=== PATIENT | male | born 1940 | race Caucasian/White ===

== ENCOUNTER 2017-08-31 05:05 | Inpatient (IN) | payer OTHER ==
[2017-08-02 13:10] VITALS: BMI 28.0
--- NOTE | 2017-08-02 13:59 | PAT Medication Instructions ---
Service Date Aug 02, 2017. Current Home Medication List Amlodipine/Benazepril (Lotrel 10MG/20MG), 1 CAP PO QAM Atorvastatin (Lipitor), 20 MG PO QPM Homeopathic Products (Leg Cramp Relief), 1 TAB PO UD PRN for LEG CRAMPS Hydrochlorothiazide (Hydrochlorothiazide), 1 TAB PO QAM Meloxicam (Mobic), 7.5 MG PO UD PRN for prn Metoprolol Tartrate (Lopressor), 50 MG PO BID Omeprazole (Prilosec), 20 MG PO UD PRN for PRN Medication Instructions For Your Scheduled Surgery -Contact your surgeon if you plan on taking: Meloxicam (Mobic), 7.5 MG PO UD PRN for prn - Hold the following medications the morning of surgery: Hydrochlorothiazide (Hydrochlorothiazide), 1 TAB PO QAM Amlodipine/Benazepril (Lotrel 10MG/20MG), 1 CAP PO QAM - Take the following medications the morning of surgery with a sip of water: Omeprazole (Prilosec), 20 MG PO UD PRN for PRN (if needed) Metoprolol Tartrate (Lopressor), 50 MG PO BID Homeopathic Products (Leg Cramp Relief), 1 TAB PO UD PRN for LEG CRAMPS (if needed) - Take the following medications as scheduled the night before surgery: Omeprazole (Prilosec), 20 MG PO UD PRN for PRN (if needed) Metoprolol Tartrate (Lopressor), 50 MG PO BID Atorvastatin (Lipitor), 20 MG PO QPM Homeopathic Products (Leg Cramp Relief), 1 TAB PO UD PRN for LEG CRAMPS (if needed) If you have any questions please call us at [phone] or [phone] or [phone]
[2017-08-02 14:50] LABS: BASO % 0.2 %; BASO ABS # 0.02 K/uL (0-0.2); EOS % 1.3 %; EOS ABS # 0.13 K/uL (0-0.5); HEMATOCRIT 46.6 % (42-52); HEMOGLOBIN 16.8 g/dL (14.0-18.0); IG# 0.02 K/uL (0.00-0.02); LYMPH % 29.5 %; LYMPH ABS # 2.91 K/uL (1.2-3.4); MEAN CELL VOLUME 86.5 fL (80-100); MEAN CORPUSCULAR HEMOGLOBIN 31.2 pg (25-34); MEAN CORPUSCULAR HGB CONC 36.1 g/dl (32-36); MEAN PLATELET VOLUME 11.1 fL (7.4-10.4); MONO % 7.3 %; MONO ABS # 0.72 K/uL (0.11-0.59); NEUT % 61.5 %; NEUT ABS # 6.08 K/uL (1.4-6.5); PLATELET COUNT 205 K/uL (130-400); RED CELL DISTRIBUTION WIDTH CV 12.7 % (11.5-14.5); RED CELL DISTRIBUTION WIDTH SD 40.3 fL (36.4-46.3); WHITE BLOOD COUNT 9.88 K/uL (4.8-10.8)
--- NOTE | 2017-08-02 14:56 | DIAGNOSTIC IMAGING REPORT ---
CHEST 2 VIEWS ROUTINE CLINICAL HISTORY: Preoperative evaluation. COMPARISON STUDY: No previous studies for comparison. FINDINGS: Lung volumes are normal. Incidental note is made of a surgical anchor within the left humeral head. There is no pneumothorax or pleural effusion. There is no consolidation. Pulmonary vascularity is normal. Cardiomediastinal silhouette is unremarkable. IMPRESSION: No acute cardiopulmonary findings. Electronically signed by: Kunal Alas M.D. 08/02/2017 2:55 PM Dictated Date/Time: 08/02/2017 2:54 PM
[2017-08-02 15:03] LABS: PTT PATIENT 26.6 SECONDS (21.0-31.0)
[2017-08-02 15:22] LABS: CALCIUM 9.1 mg/dl (8.5-10.1); CREATININE 1.14 mg/dl (0.60-1.40)
--- NOTE | 2017-08-30 18:31 | HISTORY & PHYSICAL EXAMINATION ---
DATE OF ADMISSION: 08/31/2017 ADMISSION HISTORY AND PHYSICAL CHIEF COMPLAINT: Chronic left knee pain. HISTORY OF PRESENT ILLNESS: This is a 77-year-old male patient of Dr. Hoyt'del complaining of chronic left knee pain, longstanding, now progressively getting worse. The patient has failed conservative treatment including intraarticular injections, arthroscopic surgery and over the counter anti-inflammatories. The patient has increased pain with weightbearing activities and his pain does interfere with his activities of daily living. PAST MEDICAL HISTORY: Hypertension, hypercholesterolemia, neck problems, sciatica, and acid reflux. SOCIAL HISTORY: Nonsmoker, nondrinker. PAST SURGICAL HISTORY: Left knee scope, right shoulder scope and left shoulder scope. FAMILY HISTORY: Noncontributory. REVIEW OF SYSTEMS: Chronic left knee pain. MEDICATIONS: Lipitor 20 mg daily, hydrochlorothiazide 12.5 mg daily, amlodipine 12/Benazepril 40 mg daily, and metoprolol 50 mg daily. ALLERGIES: No known drug allergies. PHYSICAL EXAMINATION: GENERAL: Well-developed, well-nourished 77-year-old male in no acute distress. He is alert and oriented x3 and pleasant. HEENT: Normocephalic, atraumatic. Extraocular motions are intact. Pupils are equal and reactive to light. HEART: Regular rate and rhythm. LUNGS: Clear. ABDOMEN: Soft and nontender, bowel sounds are present. EXTREMITIES: Left knee reveals medial joint line tenderness. He has a limited range of motion of 0-130. He has a varus deformity with crepitation with passive range of motion. He has 5/5 strength. NEUROLOGICAL: Neurologically and neurovascularly he is intact in his left lower extremity. DIAGNOSES: Left knee end-stage osteoarthritis, hypertension, hypercholesterolemia, neck problems, sciatica, and acid reflux. PLAN: The patient was advised of his diagnosis. Indications, risks, benefits, and postop course have all been reviewed. The patient wishes to proceed with a left total knee arthroplasty. Necessary consent forms, preoperative testing and clearances will be obtained.
[2017-08-31] VITALS (11 sets, daily range): BP systolic 148–198; BP diastolic 59–84; PULSE 46–58; TEMP 36.2–36.8; O2SAT 95–99; Ht 172.7 cm; Wt 84.1 kg
[~2017-08-31] VITALS: Ht 172.7 cm; Wt 84.1 kg
[~2017-08-31 05:05] MED LIST: AMLO10CA PO; ATOR-22 PO; HOME1TAB18 PO; HYDR12.55 PO; MELO7.5T5 PO; METO-551 PO; OMEP20CA59 PO
[2017-08-31] MEDS ORDERED: EYE OPL (05:58)
[2017-08-31] MEDS ORDERED: LACTATED RINGER'S 1000ML 500 ML IV SCH (06:00)
[2017-08-31] MEDS ORDERED: DEXAMETHASONE 4 MG TAB PO SCH (06:00)
[2017-08-31] MEDS ORDERED: CEFAZOLIN 2000MG IV PUSH 15 ML IV SCH (06:00)
[2017-08-31] MEDS ORDERED: ACETAMINOPHEN 500 MG TAB PO SCH (06:00)
[2017-08-31] MEDS ORDERED: GABAPENTIN 600 MG PO SCH (06:00)
[2017-08-31] MEDS ORDERED: CeleBREX 200 MG CAP PO SCH (06:00)
[2017-08-31] MEDS ORDERED: ROPIVACAINE 5MG/ML 30 ML 150 MG, BUPIVACAINE 0.5% MPF INJ 30 ML, EpINEphrine HCL INJ 0.... INFIL SCH ×8 (06:00)
[2017-08-31] MEDS ORDERED: LACTATED RINGER'S 1000ML 1,000 ML IV SCH (06:00)
[2017-08-31] MEDS ORDERED: METOCLOPRAMIDE HCL 10 MG TAB PO SCH (06:00)
[2017-08-31] MEDS ORDERED: FAMOTIDINE 20 MG TAB PO SCH (06:00)
[2017-08-31] MEDS ORDERED: MIDAZOLAM HCL 1 MG/ML 2ML VIAL ONE (06:21)
[2017-08-31] MEDS ORDERED: FENTANYL CITRATE INJ 50 MCG/1 ML 2 ML VIAL ONE (06:22)
[2017-08-31] MEDS ORDERED: BUPIVACAINE 0.25% 30 ML VIAL ONE (06:25)
[2017-08-31] MEDS ORDERED: BUPIVACAINE 0.5 % 5 MG/1 ML PF 10ML VIAL ONE (06:25)
[2017-08-31] MEDS ORDERED: PROPOFOL IV EMULSION 10 MG/ML 20 ML VIAL IV ONE (06:28)
[2017-08-31] MEDS ORDERED: LIDOCAINE HCL 2% 2 ML VIAL (20MG/ML) ONE (06:28)
[2017-08-31] MEDS ORDERED: ONDANSETRON INJ 2 MG/ML 2 ML VIAL ONE (06:28)
[2017-08-31] MEDS: TRANEXAMIC ACID INJ 1,000 MG x 2 Bags IV SCH ×4 (06:30→06:49)
[2017-08-31] MEDS ORDERED: POVIDONE-IODINE OP SOLN 30 ML BTL ONE (06:39)
[2017-08-31] MEDS ORDERED: ORTHO JOINT ANESTHETIC ONE (06:39)
[2017-08-31] MEDS ORDERED: BACITRACIN 50000 UNIT VIAL ONE (06:39)
[2017-08-31] MEDS ORDERED: EpHEDrine SULFATE INJ 50 MG/ML AMP IV PRN (07:00)
[2017-08-31] MEDS ORDERED: PHENYLEPHRINE 100MCG/ML 5ML SYR IV PRN (07:00)
[2017-08-31] MEDS ORDERED: ATROPINE SULFATE 0.1 MG/ML 5ML SYR IV PRN (07:00)
[2017-08-31] MEDS ORDERED: HYDROmorphone INJ 2 MG/ML SYR/VIAL IV PRN (07:00)
[2017-08-31] MEDS ORDERED: KETOROLAC TROMETHAMINE 30 MG/ML VIAL IV. PRN (07:00)
[2017-08-31] MEDS ORDERED: ONDANSETRON INJ 2 MG/ML 2 ML VIAL IV PRN ×2 (07:00→09:30)
--- NOTE | 2017-08-31 07:10 | History & Physical Bridge Note ---
H&P Re-Evaluation Bridge Note: I have examined the patient, reviewed the History & Physical and in the interval since the performance of the History & Physical I have noted the following changes of clinical significance: No changes noted
[2017-08-31] MEDS ORDERED: EpHEDrine SULFATE 50MG/5ML SYR ONE (08:12)
--- NOTE | 2017-08-31 09:21 | OPERATIVE REPORT ---
DATE OF OPERATION: 08/31/2017 INDICATION FOR PROCEDURE: The patient is a 77-year-old male with bilateral knee osteoarthritis, left knee worse than his right. He has varus knee, he has [id number] to medial compartment of his left knee. Extensive conservative management and now wants to proceed with knee replacement surgery at this time. PREOPERATIVE DIAGNOSIS: End-stage osteoarthritis, left knee. POSTOPERATIVE DIAGNOSIS: Same. PROCEDURE: Left total knee arthroplasty. SURGEON: Fabien Hoyt MD. BURRING WHEEL OPERATOR: MINDY Rivera. ANESTHESIA: Spinal, adductor nerve block and Orthomix. OPERATIVE PROCEDURE: The patient was taken to the operating room, anesthetized under anesthesia as dictated. He was placed supine on the operating table. Pneumatic tourniquet was placed about the left upper thigh. Knee exam demonstrated about a 5 degree flexion contracture and good flexion to 130 degrees. He had a tight medial compartment. He had some laxity of his LCL. His left lower extremity was prepped and draped with ChloraPrep in usual sterile fashion. His leg was elevated, exsanguinated with Esmarch bandage. Pneumatic tourniquet was raised to 325 mmHg. Anterior incision made across the left knee. Skin incised sharp, subcutaneous flaps were elevated. He had some prepatellar bursal scar tissue that was resected. Incision was made through medial retinaculum and extended up in the mid third of the quadriceps tendon and extended down to the medial tibial tubercle. Intra-articular findings demonstrated that he had [id number] to medial compartment grade 4 with some eburnated bone. I used the [employer] 2.0, total knee arthroplasty system using Vision[employer] MRI templating. The template for 8 femur, 6 tibia. To expose the knee, the infrapatellar fat pad was resected. Lateral synovial bands were released. The fat pad over the anterior femur for placement of the component over the anterior femur was resected. The releases were performed around the medial tibial plateau and posteromedial tibial plateau to balance the ligaments. The ACL and PCL were resected. The menisci were resected. The femoral surface was exposed. The custom femoral cutting block was pinned in position and the distal femoral cut was made. The knee was extended and a subperiosteal peel lateral release was performed around the patella. Patella width was measured and width was reproduced using a 38 mm dome patellar component. The drill holes were made and the excess lateral facet was beveled off to prevent any impingement. The femur was re-exposed. A size 8 5 in 1 cutting block was pinned in position. The anterior, posterior and chamfer cuts were made. Then the tibia was subluxed and the custom tibial cutting guide was placed in position and the proximal tibial cut was made. The drill pin was used to make some small drill holes in the sclerotic medial proximal tibial plateau to enhance cement fixation there. The 7 tibial trial was externally rotated in line with the tibial tubercle, pinned in position and a punch for the stem was used. We upsized to a 7 to get better coverage which was appropriate. The size 8 femoral trial was then inserted, centered and the notch cutting devices were used. We did an initial trial reduction with a 9 poly. It appeared that there was going to be a little bit ligamentous imbalance with some laxity of the LCL compared to the MCL so we went ahead and removed that trial component, placed a laminar wheel truing machine tender in place, pie crusted the MCL slightly and then placed an [address] which balanced supplements perfectly and knee was perfectly balanced in full range of motion and patella had a slight liftoff so we did do a formal lateral release leaving the synovium intact and this allowed the patella to track centrally. Trials were removed. The anesthetic cocktail was injected per protocol. The knee was copiously irrigated with pulsatile lavage antibiotic solution and bacitracin. Final components were cemented with Simplex G cement. The final components were the 8 Oxinium posterior stabilized [employer] Journey, left Oxinium femoral component, the 7 tibial base plate, the 11 mm high flexed posterior stabilized poly insert and the 38 patella. While the cement cured, we used Betadine soak per protocol. Then irrigated out copiously with antibiotic solution and bacitracin. Then 2 drains were brought out laterally, connected to Hemovac. Quadriceps tendon and medial retinaculum were closed with interrupted [id number] #1 Vicryl sutures. Subcutaneous tissue closed with interrupted 2-0 Vicryl sutures, skin was closed with glen. Silverlon dressing was placed and the patient tolerated the procedure well. MINDY Rivera was my assistant paralegal. He functioned as assistant paralegal throughout the entire procedure. He assisted in patient positioning, prepping, draping, leg positioning, instrument management, soft tissue retraction and performed the fascial and subcutaneous and skin closure and will participate in postoperative care of the patient. I attest to the content of the Intraoperative Record and any orders documented therein. Any exception s are noted below.
[2017-08-31] MEDS ORDERED: OXYCODONE HCL IR 5 MG TAB (IMMEDIATE RELEASE) PO PRN (09:30)
[2017-08-31] MEDS ORDERED: BISACODYL 10 MG SUPP PR PRN (09:30)
[2017-08-31] MEDS ORDERED: MAGNESIUM HYDROXIDE SUSP 30 ML UDC PO PRN (09:30)
[2017-08-31] MEDS ORDERED: TRAMADOL HCL 50 MG TAB PO PRN (09:30)
[2017-08-31] MEDS ORDERED: [UNRECOGNIZED DRUG - OTHER] PO PRN (09:30)
[2017-08-31] MEDS ORDERED: SOD PHOSPHATE/SOD BIPHOSPHATE ENEMA 132 ML BTL PR PRN (09:30)
[2017-08-31] MEDS ORDERED: METOCLOPRAMIDE HCL INJ 5 MG/ML 2 ML VIAL IV PRN (09:30)
[2017-08-31] MEDS ORDERED: MoRPHine SULFATE 2 MG/ML CARP IV PRN (09:30)
[2017-08-31] MEDS ORDERED: ZOLPIDEM TARTRATE 5 MG TAB PO PRN (09:30)
--- NOTE | 2017-08-31 09:52 | DIAGNOSTIC IMAGING REPORT ---
L KNEE 1 OR 2 VIEWS ROUTINE CLINICAL HISTORY: Left knee degenerative joint disease. Arthroplasty. COMPARISON: None FINDINGS: Alignment of the total left knee arthroplasty is anatomic. There is no fracture or unexpected radiopaque foreign body. Skin glen and drains are in place. There is extensive vascular calcification. IMPRESSION: Expected findings following total left knee arthroplasty. Electronically signed by: Kunal Alas M.D. 08/31/2017 9:50 AM Dictated Date/Time: 08/31/2017 9:50 AM
[2017-08-31] MEDS ORDERED: AMLO5CAP3 PO (11:08)
[2017-08-31] MEDS ORDERED: MoRPHine SULFATE 4 MG/ML 1 ML CARP\\VIAL IV PRN (11:15)
[2017-08-31] MEDS: D5W AND 1/2NSS + 20MEQ KCL 1,000 ML IV SCH ×2 (11:31→20:33)
--- NOTE | 2017-08-31 11:36 | Anesthesiology Progress Note ---
Anesthesia Post Op Note Date & Time Aug 31, 2017 at 11:36 Vital Signs Pain Intensity: 0.0 Vital Signs Past 12 Hours Date Time Temp Pulse Resp B/P (MAP) Pulse Ox O2 Delivery O2 Flow Rate FiO2 08/31/17 11:32 36.3 51 18 161/69 (99) 98 Nasal Cannula 2.0 08/31/17 11:01 36.3 48 18 148/59 (88) 98 Nasal Cannula 2.0 08/31/17 11:00 98 Nasal Cannula 2.0 08/31/17 10:30 99 Nasal Cannula 2.0 08/31/17 10:30 Nasal Cannula 2.0 08/31/17 10:30 36.5 53 14 161/70 (100) 99 Nasal Cannula 2.0 08/31/17 10:15 47 11 141/62 100 Nasal Cannula 2 08/31/17 10:00 37.1 48 16 150/62 100 Nasal Cannula 2 08/31/17 09:50 53 16 148/63 96 Nasal Cannula 2 08/31/17 09:40 49 16 140/66 99 Nasal Cannula 2 08/31/17 09:30 50 16 132/60 100 Oxymask 10 08/31/17 09:21 36.5 16 148/70 100 Oxymask 10 08/31/17 05:40 36.8 46 18 198/84 98 Room Air Notes Mental Status: alert / awake / arousable, participated in evaluation Pt Amnestic to Procedure: Yes Nausea / Vomiting: adequately controlled Pain: adequately controlled Airway Patency, RR, SpO2: stable & adequate BP & HR: stable & adequate Hydration State: stable & adequate Anesthetic Complications: no major complications apparent
--- NOTE | 2017-08-31 11:39 | Medical Consult ---
Consultation Date of Consultation: Aug 31, 2017. Attending Physician: Fabien Hoyt M.D. Reason for Consultation: Post Op Medical Management History of Present Illness 77 year old male who is s/p left TKA today by Dr. Hoyt. Post operatively the patient is doing well. He reports his pain is well controlled. He reports mild numbness to the BLLE from surgery. No chest pain or shortness of breath. He denies abdominal pain and nausea. No lightheadedness and dizziness. He has not voided since surgery. Past Medical/Surgical History Medical Problems: (1) Dyslipidemia Status: Chronic (2) HTN (hypertension) Status: Chronic Surgical Problems: (1) H/O repair of left rotator cuff Status: Chronic (2) H/O repair of right rotator cuff Status: Chronic (3) S/P left knee arthroscopy Status: Chronic (4) S/P repair of hydrocele Status: Chronic Family History FH: colon cancer SISTER Social History Smoking Status: Never Smoker Alcohol Use: none Allergies Coded Allergies: No Known Allergies (Unverified , 08/31/17) Home Medications Amlodipine Besylate/Benaz (Amlodipine Besylate-Benazepril) 1 Cap Cap 1 Cap PO DAILY 30 Days 10mg/40mg [eye gtt/glaucoma] 1 Drop OPL QPM Leg Cramp Relief (Homeopathic Products) 1 Tab Tab 1 Tab PO UD PRN Prilosec (Omeprazole) 20 Mg Capcr 20 Mg PO UD PRN Mobic (Meloxicam) 7.5 Mg Tab 7.5 Mg PO UD PRN Hydrochlorothiazide 12.5 Mg Tab 1 Tab PO QAM 90 Days Lopressor (Metoprolol Tartrate) 50 Mg Tab 50 Mg PO BID Lipitor (Atorvastatin Calcium) 20 Mg Tab 20 Mg PO QPM Current Inpatient Medications Current Inpatient Medications Medications (Trade) Dose Ordered Sig/Robinson Route Start Time Stop Time Status Last Admin Dose Admin Lactated Ringer's 1,000 ml @ 15 mls/hr Q24H IV 08/31/17 06:00 09/01/17 05:59 Cefazolin Sodium 15 ml @ 2.5 mls/min PREOP IV 08/31/17 06:00 08/31/17 18:00 08/31/17 07:19 2.5 MLS/MIN Acetaminophen (Tylenol Tab) 1,000 mg PREOP PO 08/31/17 06:00 08/31/17 18:00 08/31/17 06:04 1,000 MG Celecoxib (CeleBREX CAP) 200 mg PREOP PO 08/31/17 06:00 08/31/17 18:00 08/31/17 06:02 200 MG Dexamethasone (Decadron Tab) 8 mg PREOP PO 08/31/17 06:00 08/31/17 18:00 08/31/17 06:03 8 MG Famotidine (Pepcid Tab) 20 mg PREOP PO 08/31/17 06:00 08/31/17 18:00 08/31/17 06:03 20 MG Gabapentin (Neurontin Cap) 600 mg PREOP PO 08/31/17 06:00 08/31/17 18:00 08/31/17 06:03 600 MG Metoclopramide HCl (Reglan Tab) 10 mg PREOP PO 08/31/17 06:00 08/31/17 18:00 08/31/17 06:03 10 MG Ondansetron HCl (Zofran Inj) 4 mg ONE PRN IV 08/31/17 07:00 08/31/17 12:00 Atropine Sulfate (Atropine Sulfate 0.1mg/ml Inj) 0.5 mg Q1M PRN IV 08/31/17 07:00 08/31/17 12:00 Ephedrine Sulfate (EpHEDrine SULFATE INJ) 5 mg Q5M PRN IV 08/31/17 07:00 08/31/17 12:00 Ketorolac Tromethamine (Toradol Inj) 30 mg ONE PRN IV. 08/31/17 07:00 08/31/17 12:00 Hydromorphone HCl (Dilaudid Inj) 0.25 mg Q5M PRN IV 08/31/17 07:00 08/31/17 12:00 Phenylephrine HCl (Cyril-Synephrine 500MCG/5ML Syr) 100 mcg Q5M PRN IV 08/31/17 07:00 08/31/17 12:00 Atorvastatin Calcium (Lipitor Tab) 20 mg QPM PO 08/31/17 21:00 09/30/17 20:59 Metoprolol Tartrate (Lopressor Tab) 50 mg BID PO 08/31/17 21:00 09/30/17 20:59 Amlodipine Besylate (Norvasc Tab) 10 mg QAM PO 09/01/17 09:00 10/01/17 08:59 Miscellaneous Information (Order Awaiting Action) 1 ea QS N/A 08/31/17 16:00 09/30/17 15:59 Potassium Chloride/Dextrose/ Sod Cl 1,000 ml @ 100 mls/hr Q10H IV 08/31/17 11:00 09/01/17 10:59 Cefazolin Sodium 2000 mg/Syringe 15 ml @ 3.75 mls/ min Q8H IV 08/31/17 15:00 08/31/17 23:03 Celecoxib (CeleBREX CAP) 200 mg BID PO 08/31/17 21:00 09/30/17 20:59 Oxycodone HCl (Roxicodone Immediate Rel Tab) 1 TABLET FOR PAIN RATING... Q4H PRN PO 08/31/17 09:30 09/14/17 09:29 Morphine Sulfate (MoRPHine SULFATE INJ) 2 mg Q2H PRN IV 08/31/17 09:30 09/14/17 09:29 Acetaminophen (Tylenol Tab) 1,000 mg Q8 PO 08/31/17 14:00 09/30/17 13:59 Magnesium Hydroxide (Milk Of Magnesia Susp) 30 ml Q6H PRN PO 08/31/17 09:30 09/30/17 09:29 Bisacodyl (Dulcolax Supp) 10 mg DAILY PRN [place] 08/31/17 09:30 09/30/17 09:29 Sodium Biphosphate/ Sodium Phosphate (Fleet Enema) 132 ml DAILY PRN [place] 08/31/17 09:30 09/30/17 09:29 Docusate Sodium (coLACE CAP) 100 mg BID PO 08/31/17 21:00 09/30/17 20:59 Diphenhydramine HCl (Benadryl Cap) 25 mg Q8H PRN PO 08/31/17 09:30 09/30/17 09:29 Zolpidem Tartrate (Ambien Tab) 5 mg HSZ PRN PO 08/31/17 09:30 09/30/17 09:29 Multivitamins (Multivitamin Tab) 1 tab QAM PO 09/01/17 09:00 10/01/17 08:59 Ondansetron HCl (Zofran Inj) 4 mg Q6H PRN IV 08/31/17 09:30 09/30/17 09:29 Metoclopramide HCl (Reglan Inj) 10 mg Q6H PRN IV 08/31/17 09:30 09/30/17 09:29 Pantoprazole Sodium (Protonix Tab) 40 mg QAM PO 09/01/17 09:00 09/05/17 08:59 Tramadol HCl (Ultram Tab) 1 tablet for pain rating... Q4H PRN PO 08/31/17 09:30 09/30/17 09:29 Aspirin (Ecotrin Tab) 81 mg BID PO 08/31/17 21:00 09/30/17 20:59 Morphine Sulfate (MoRPHine SULFATE INJ) 4 mg Q2H PRN IV 08/31/17 11:15 09/14/17 11:14 Benazepril HCl (Lotensin Tab) 40 mg QAM PO 09/01/17 09:00 10/01/17 08:59 Review of Systems ROS per HPI, all other systems reviewed and negative Physical Exam Date Time Temp Pulse Resp B/P (MAP) Pulse Ox O2 Delivery O2 Flow Rate FiO2 08/31/17 11:01 36.3 48 18 148/59 (88) 98 Nasal Cannula 2.0 08/31/17 11:00 98 Nasal Cannula 2.0 08/31/17 10:15 47 11 141/62 100 Nasal Cannula 2 08/31/17 10:00 37.1 48 16 150/62 100 Nasal Cannula 2 08/31/17 09:50 53 16 148/63 96 Nasal Cannula 2 08/31/17 09:40 49 16 140/66 99 Nasal Cannula 2 08/31/17 09:30 50 16 132/60 100 Oxymask 10 08/31/17 09:21 36.5 16 148/70 100 Oxymask 10 08/31/17 05:40 36.8 46 18 198/84 98 Room Air General Appearance: WD/WN, no apparent distress Head: normocephalic, atraumatic Eyes: normal inspection, EOMI, sclerae normal ENT: hearing grossly normal, + pertinent finding (mucous membranes moist) Neck: supple, no JVD, trachea midline Respiratory/Chest: lungs clear, normal breath sounds, no respiratory distress Cardiovascular: regular rate, rhythm, no edema, normal peripheral pulses Abdomen/GI: normal bowel sounds, non tender, soft, no organomegaly Extremities/Musculoskelatal: + pertinent finding (s/p left knee surgery, surgical dressing intact, drain in place draining bloody drainage, CSM checks intact) Neurologic/Psych: no motor/sensory deficits, alert, normal mood/affect, oriented x 3 Skin: normal color, warm/dry Assessment & Plan S/P LEFT TKA - POD#0 - activity and wound care orders as per ortho - pain control with bowel regimen - PT/OT - monitor H/H for acute blood loss anemia and transfuse blood products PRN HTN - BP controlled - continue amlodipine/benazepril and metoprolol (patient reports he chronically runs a HR in the 40s-50s) - will hold HCTZ for now to prevent perioperative dehydration DYSLIPIDEMIA - continue statin DVT PROPHYLAXIS - ASA 81mg BID per ortho Thank you for this consultation. We will follow the patient with you during their hospital stay. You can reach a [facility] via pager @ . ATTENDING ADDENDUM : pt seen and examined , care co ordinated with Angella ARITA 77 yo M underwent elective left knee surgery recovering well post op denies of any chest pain or SOB knee pain well controlled with pain meds eager to know when he can be discharged home medically stable ' cont out pt meds Lab ordered in AM to assess H&H and renal function please refer to documentation of Angella Gutierrez for further discussion of other issues Bobbi Moore MD
[2017-08-31] MEDS: ACETAMINOPHEN 500 MG TAB PO SCH ×2 (13:39→21:38)
[2017-08-31] MEDS: CEFAZOLIN IV 2,000 MG in SYRINGE 0 ML IV SCH ×2 (14:18→22:30)
[2017-08-31] MEDS: ATORVASTATIN 20 MG TAB PO SCH (20:33)
[2017-08-31] MEDS: CeleBREX 200 MG CAP PO SCH (20:33)
[2017-08-31] MEDS: ASPIRIN 81 MG ECTAB PO SCH (20:33)
[2017-08-31] MEDS: DOCUSATE SODIUM 100 MG CAP PO SCH (20:33)
[2017-08-31] MEDS: METOPROLOL TARTRATE 50 MG TAB PO SCH (20:35)
[2017-09-01] VITALS (8 sets, daily range): BP systolic 141–179; BP diastolic 58–77; PULSE 49–59; TEMP 36.5–36.9; O2SAT 97–98
[2017-09-01] MEDS: ACETAMINOPHEN 500 MG TAB PO SCH ×3 (05:56→21:42)
[2017-09-01] MEDS: D5W AND 1/2NSS + 20MEQ KCL 1,000 ML IV SCH (05:56)
[2017-09-01 06:42] LABS: HEMATOCRIT 35.4 % (42-52); HEMOGLOBIN 12.7 g/dL (14.0-18.0); MEAN CELL VOLUME 86.3 fL (80-100); MEAN CORPUSCULAR HGB CONC 35.9 g/dl (32-36); MEAN PLATELET VOLUME 10.6 fL (7.4-10.4); PLATELET COUNT 175 K/uL (130-400); RED CELL DISTRIBUTION WIDTH CV 12.7 % (11.5-14.5); RED CELL DISTRIBUTION WIDTH SD 40.2 fL (36.4-46.3); WHITE BLOOD COUNT 24.71 K/uL (4.8-10.8)
[2017-09-01 07:17] LABS: CALCIUM 8.3 mg/dl (8.5-10.1); CREATININE 1.15 mg/dl (0.60-1.40); POTASSIUM 4.7 mmol/L (3.5-5.1)
--- NOTE | 2017-09-01 08:11 | Anesthesiology Progress Note ---
Anesthesia Post Op Note Date & Time Sep 01, 2017 at 08:10 Vital Signs Pain Intensity: 0.0 Vital Signs Past 12 Hours Date Time Temp Pulse Resp B/P (MAP) Pulse Ox O2 Delivery O2 Flow Rate FiO2 09/01/17 07:53 36.5 49 16 179/67 (104) 97 Room Air 09/01/17 03:45 36.9 53 18 161/64 (96) 98 Room Air 08/31/17 22:50 36.6 52 18 160/60 (93) 97 Room Air 08/31/17 22:40 Room Air 08/31/17 20:25 58 160/66 (97) Notes Mental Status: alert / awake / arousable, participated in evaluation Pt Amnestic to Procedure: Yes Nausea / Vomiting: adequately controlled Pain: adequately controlled Airway Patency, RR, SpO2: stable & adequate BP & HR: stable & adequate Hydration State: stable & adequate Neuraxial Anesthesia: was administered, sensory block resolved Anesthetic Complications: no major complications apparent
--- NOTE | 2017-09-01 08:23 | Orthopedic Progress Note ---
Orthopedic Progress Note Date of Service Sep 01, 2017. Subjective Post OP Day: 1 Reports: feeling well, pain controlled w PO medications, Denies: complaints, chest pain, SOB, nausea / vomiting, light headedness, calf pain Additional Notes: BP elevated Objective calves soft nontender, N/V intact, capillary refill less than 2 sec., A&O x3, toes mobile Dressings bleeding through. Date Time Temp Pulse Resp B/P (MAP) Pulse Ox O2 Delivery O2 Flow Rate FiO2 09/01/17 07:53 36.5 49 16 179/67 (104) 97 Room Air 09/01/17 03:45 36.9 53 18 161/64 (96) 98 Room Air 08/31/17 22:50 36.6 52 18 160/60 (93) 97 Room Air 08/31/17 22:40 Room Air 08/31/17 20:25 58 160/66 (97) 08/31/17 15:45 95 Room Air 08/31/17 15:25 36.4 53 16 156/68 (97) 95 Room Air 08/31/17 13:39 36.2 58 18 160/67 (98) 98 Nasal Cannula 2.0 08/31/17 12:33 36.3 50 18 164/67 (99) 98 Nasal Cannula 2.0 08/31/17 11:32 36.3 51 18 161/69 (99) 98 Nasal Cannula 2.0 08/31/17 11:01 36.3 48 18 148/59 (88) 98 Nasal Cannula 2.0 08/31/17 11:00 98 Nasal Cannula 2.0 08/31/17 10:30 99 Nasal Cannula 2.0 08/31/17 10:30 Nasal Cannula 2.0 08/31/17 10:30 36.5 53 14 161/70 (100) 99 Nasal Cannula 2.0 08/31/17 10:15 47 11 141/62 100 Nasal Cannula 2 08/31/17 10:00 37.1 48 16 150/62 100 Nasal Cannula 2 08/31/17 09:50 53 16 148/63 96 Nasal Cannula 2 08/31/17 09:40 49 16 140/66 99 Nasal Cannula 2 08/31/17 09:30 50 16 132/60 100 Oxymask 10 08/31/17 09:21 36.5 16 148/70 100 Oxymask 10 Laboratory Results 24 Hours: Test 09/01/17 06:04 Hematocrit 35.4 % Hemoglobin 12.7 g/dL Assessment & Plan Assessment: POD #1, Left TKA Plan: PT/ OT DVT prph- ASA D/C planning- Home w HH Change dressing, check drain, remove if needed. HTN- Appreciate medicine input. Inhouse Planning Pain Management: Celebrex, Ultram, Morphine, PO Tylenol, Oxy IR DVT Prophylaxis: TEDs, SCDs, ASA Discharge Planning Discharge Planning: home with home health Pain Management: PO Tylenol, Oxy IR DVT Prophylaxis: TEDs, ASA Therapy: Physical Therapy, Occupational Therapy
--- NOTE | 2017-09-01 08:24 | Discharge Instructions ---
Discharge Instructions Date of Service Sep 01, 2017. Admission Reason for Admission: Left Knee Degenerative Joint Disease Discharge Discharge Diagnosis / Problem: Left TKA Discharge Goals Goal(s): Improve function Activity Recommendations Activity Limitations: as noted below . Instructions / Follow-Up Instructions / Follow-Up ACTIVITY RECOMMENDATIONS: SELF CARE INSTRUCTIONS AFTER TOTAL KNEE REPLACEMENT A. You may need to continue a physical therapy program after discharge from the hospital. There are several options available to you. Your doctor will assist you in selecting the best one for you. 1. An out-patient facility 2 to 3 times a week for therapy or home therapy. 2. Continue working on all exercises taught to you in the hospital. Your goals should be to increase bending of your knee to 90 degrees and beyond and to fully straighten your knee. B. You may progress at your own pace from walking with a walker or crutches to a cane; then to no assistive devices. C. Make walking a part of your daily routine. Be up as much as comfortable with rest periods throughout the day. Rest with leg elevation is very important. Use the ice wrap frequently for the first 3-4 weeks. D. There are no restrictions on activities. 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 E. Wear the long elastic stockings (MATTHEW hose) 20 hours a day for 2 weeks after surgery. They can be removed several times a day for laundering and for a bath. F. You may shower, no tub baths until cleared by your doctor. SPECIAL CARE INSTRUCTIONS: VERY IMPORTANT TO READ AND REVIEW A. There are a few signs you need to watch for after you are home. Call [facility] if you notice any of the followin. Increased severe knee pain. Some pain is expected especially when you exercise. 2. Increased swelling in your leg or knee; pain or swelling of the calf muscle in either lower leg. 3. Any fluid drainage from the incision. 4. Shortness of breath or chest pain. B. Please call [facility] at if you have any concerns or questions about your operation or recovery. The doctor or his nurse will return your call promptly. C. You must take antibiotics before dental work, bladder, bowel or other surgery. Your doctor will provide you with a permanent care to carry describing this precaution. IMPORTANT: * REMEMBER TO TAKE ASPIRIN, 81 MG, TWICE DAILY FOR 4 WEEKS UNLESS OTHERWISE DIRECTED. THIS IS YOUR BLOOD THINNER. * HIGH RISK PATIENTS MAY BE PRESCRIBED A STRONGER BLOOD THINNER. THIS WILL BE PROVIDED AT DISCHARGE. * CALL IF INCREASED PAIN, REDNESS, DRAINAGE OR FEVER GREATER THAT 101. * WEAR MATTHEW HOSE 20 HOURS PER DAY FOR 2 WEEKS. * YOU MAY HAVE A LARGE BAND-AID LIKE DRESSING (SILVERON). THIS WILL REMAIN ON YOUR INCISION FOR 7 DAYS, THEN CAN BE REMOVED. IF INCISION IS LEAKING THROUGH DRESSING, CALL THE OFFICE . FOLLOW UP VISIT: If appointment is not already scheduled: Please call [facility] to make a follow-up appointment for 2 weeks after your surgery at . Current Hospital Diet Patient's current hospital diet: Regular Diet Discharge Diet Recommended Diet: Regular Diet Procedures Procedures Performed: Left total knee arthroplasty-cemented Pending Studies Studies pending at discharge: no Medical Emergencies . Who to Call and When: Medical Emergencies: If at any time you feel your situation is an emergency, please call [phone] immediately. . Non-Emergent Contact Non-Emergency issues call your: Primary Care Provider . "Provider Documentation" section prepared by Hasmukh Segundo. . VTE Core Measure Inpt VTE Proph given/why not?: Other Anticoagulation (asa), Luis Eduardo Shaikh, SCD's [place] Drug Monitoring Program Search Results: patient reviewed within database, no issues identified
[2017-09-01] MEDS: METOPROLOL TARTRATE 50 MG TAB PO SCH ×2 (08:35→21:08)
[2017-09-01] MEDS: CeleBREX 200 MG CAP PO SCH ×2 (08:37→21:08)
[2017-09-01] MEDS: MULTIVITAMIN TAB PO SCH (08:37)
[2017-09-01] MEDS: AMLODIPINE BESYLATE 5 MG TAB PO SCH (08:37)
[2017-09-01] MEDS: PANTOprazole SOD 40 MG TAB PO SCH (08:37)
[2017-09-01] MEDS: DOCUSATE SODIUM 100 MG CAP PO SCH ×2 (08:37→21:07)
[2017-09-01] MEDS: ASPIRIN 81 MG ECTAB PO SCH ×2 (08:37→21:07)
[2017-09-01] MEDS: BENAZEPRIL HCL 10 MG TAB PO SCH (08:38)
[2017-09-01] MEDS ORDERED: HYDROCHLOROTHIAZIDE 25 MG TAB PO SCH (09:00)
[2017-09-01] MEDS ORDERED: BENAZEPRIL HCL 10 MG TAB PO SCH (09:00)
[2017-09-01] MEDS ORDERED: INDAPAMIDE 1.25 MG TAB PO ONE (11:15)
--- NOTE | 2017-09-01 18:23 | Progress Note ---
Subjective Date of Service: Sep 01, 2017. Subjective Pt evaluation today including: conversation w/ patient, physical exam, lab review, review of studies, review of inpatient medication list Saw/examined the patient in room 308 patient is doing well, pain controlled no problems/issues to note eager to go home in AM Review of Systems Respiratory: No shortness of breath Cardiac: No chest pain Abdomen: No pain, No nausea, No vomiting, No diarrhea Musculoskeletal: No joint pain Medications Current Inpatient Medications Medications (Trade) Dose Ordered Sig/Robinson Route Start Time Stop Time Status Last Admin Dose Admin Atorvastatin Calcium (Lipitor Tab) 20 mg QPM PO 08/31/17 21:00 09/30/17 20:59 08/31/17 20:33 20 MG Metoprolol Tartrate (Lopressor Tab) 50 mg BID PO 08/31/17 21:00 09/30/17 20:59 08/31/17 20:35 50 MG Amlodipine Besylate (Norvasc Tab) 10 mg QAM PO 09/01/17 09:00 10/01/17 08:59 09/01/17 08:37 10 MG Miscellaneous Information (Order Awaiting Action) 1 ea QS N/A 08/31/17 16:00 09/30/17 15:59 Celecoxib (CeleBREX CAP) 200 mg BID PO 08/31/17 21:00 09/30/17 20:59 09/01/17 08:37 200 MG Oxycodone HCl (Roxicodone Immediate Rel Tab) 1 TABLET FOR PAIN RATING... Q4H PRN PO 08/31/17 09:30 09/14/17 09:29 Morphine Sulfate (MoRPHine SULFATE INJ) 2 mg Q2H PRN IV 08/31/17 09:30 09/14/17 09:29 Acetaminophen (Tylenol Tab) 1,000 mg Q8 PO 08/31/17 14:00 09/30/17 13:59 09/01/17 13:15 1,000 MG Magnesium Hydroxide (Milk Of Magnesia Susp) 30 ml Q6H PRN PO 08/31/17 09:30 09/30/17 09:29 Bisacodyl (Dulcolax Supp) 10 mg DAILY PRN DE 08/31/17 09:30 09/30/17 09:29 Sodium Biphosphate/ Sodium Phosphate (Fleet Enema) 132 ml DAILY PRN DE 08/31/17 09:30 09/30/17 09:29 Docusate Sodium (coLACE CAP) 100 mg BID PO 08/31/17 21:00 09/30/17 20:59 09/01/17 08:37 100 MG Diphenhydramine HCl (Benadryl Cap) 25 mg Q8H PRN PO 08/31/17 09:30 09/30/17 09:29 Zolpidem Tartrate (Ambien Tab) 5 mg HSZ PRN PO 08/31/17 09:30 09/30/17 09:29 Multivitamins (Multivitamin Tab) 1 tab QAM PO 09/01/17 09:00 10/01/17 08:59 09/01/17 08:37 1 TAB Ondansetron HCl (Zofran Inj) 4 mg Q6H PRN IV 08/31/17 09:30 09/30/17 09:29 Metoclopramide HCl (Reglan Inj) 10 mg Q6H PRN IV 08/31/17 09:30 09/30/17 09:29 Pantoprazole Sodium (Protonix Tab) 40 mg QAM PO 09/01/17 09:00 09/05/17 08:59 09/01/17 08:37 40 MG Tramadol HCl (Ultram Tab) 1 tablet for pain rating... Q4H PRN PO 08/31/17 09:30 09/30/17 09:29 Aspirin (Ecotrin Tab) 81 mg BID PO 08/31/17 21:00 09/30/17 20:59 09/01/17 08:37 81 MG Morphine Sulfate (MoRPHine SULFATE INJ) 4 mg Q2H PRN IV 08/31/17 11:15 09/14/17 11:14 Benazepril HCl (Lotensin Tab) 40 mg QAM PO 09/01/17 09:00 10/01/17 08:59 09/01/17 08:38 40 MG Objective Vital Signs Date Time Temp Pulse Resp B/P (MAP) Pulse Ox O2 Delivery O2 Flow Rate FiO2 09/01/17 16:30 97 Room Air 09/01/17 15:36 36.8 51 18 142/63 (89) 97 Room Air 09/01/17 10:58 36.5 59 16 161/69 (99) 97 Room Air 09/01/17 08:00 Room Air 09/01/17 07:53 36.5 49 16 179/67 (104) 97 Room Air 09/01/17 03:45 36.9 53 18 161/64 (96) 98 Room Air 08/31/17 22:50 36.6 52 18 160/60 (93) 97 Room Air 08/31/17 22:40 Room Air 08/31/17 20:25 58 160/66 (97) Physical Exam General Appearance: no apparent distress Respiratory/Chest: no respiratory distress, no accessory muscle use Cardiovascular: regular rate, rhythm, no edema, no murmur Extremities: + pertinent finding (+WANDY drain in place) Laboratory Results Last 24 Hours Test 09/01/17 06:04 White Blood Count 24.71 K/uL Red Blood Count 4.10 M/uL Hemoglobin 12.7 g/dL Hematocrit 35.4 % Mean Corpuscular Volume 86.3 fL Mean Corpuscular Hemoglobin 31.0 pg Mean Corpuscular Hemoglobin Concent 35.9 g/dl RDW Standard Deviation 40.2 fL RDW Coefficient of Variation 12.7 % Platelet Count 175 K/uL Mean Platelet Volume 10.6 fL Sodium Level 133 mmol/L Potassium Level 4.7 mmol/L Chloride Level 104 mmol/L Carbon Dioxide Level 23 mmol/L Anion Gap 6.0 mmol/L Blood Urea Nitrogen 21 mg/dl Creatinine 1.15 mg/dl Est Creatinine Clear Calc Drug Dose 55.0 ml/min Estimated GFR () 69.8 Estimated GFR (Non- 60.2 BUN/Creatinine Ratio 18.0 Random Glucose 152 mg/dl Calcium Level 8.3 mg/dl Assessment and Plan S/P LEFT TKA 09/01 patient is doing well, no problems/issues to note DVT ppx as per ortho, aspirin 81mg BID pain control as per ortho PT/OT - POD#0 - activity and wound care orders as per ortho - pain control with bowel regimen - PT/OT - monitor H/H for acute blood loss anemia and transfuse blood products PRN HTN blood pressure elevated today will continue amlodipine at max dose of 10mg, Benazepril 40mg, Lopressor 50mg BID gave one dose of Indapamide can restart HCTZ in AM if Na and kidney function is okay - BP controlled - continue amlodipine/benazepril and metoprolol (patient reports he chronically runs a HR in the 40s-50s) - will hold HCTZ for now to prevent perioperative dehydration DYSLIPIDEMIA - continue statin DVT PROPHYLAXIS - ASA 81mg BID per ortho
[2017-09-01] MEDS: ATORVASTATIN 20 MG TAB PO SCH (21:07)
[2017-09-02] MEDS: ACETAMINOPHEN 500 MG TAB PO SCH (05:49)
[2017-09-02 06:19] LABS: CREATININE 1.17 mg/dl (0.60-1.40); POTASSIUM 4.3 mmol/L (3.5-5.1)
[2017-09-02 06:27] VITALS: BP 162/59; PULSE 51; TEMP 36.6; O2SAT 96
[2017-09-02 06:42] LABS: HEMATOCRIT 30.5 % (42-52); HEMOGLOBIN 10.7 g/dL (14.0-18.0); MEAN CELL VOLUME 86.9 fL (80-100); MEAN CORPUSCULAR HEMOGLOBIN 30.5 pg (25-34); MEAN CORPUSCULAR HGB CONC 35.1 g/dl (32-36); MEAN PLATELET VOLUME 10.9 fL (7.4-10.4); PLATELET COUNT 155 K/uL (130-400); RED CELL DISTRIBUTION WIDTH CV 13.2 % (11.5-14.5); RED CELL DISTRIBUTION WIDTH SD 41.9 fL (36.4-46.3); WHITE BLOOD COUNT 14.21 K/uL (4.8-10.8)
[2017-09-02] MEDS: METOPROLOL TARTRATE 50 MG TAB PO SCH (07:16)
[2017-09-02] MEDS: DOCUSATE SODIUM 100 MG CAP PO SCH (07:17)
[2017-09-02] MEDS: ASPIRIN 81 MG ECTAB PO SCH (07:17)
[2017-09-02] MEDS: AMLODIPINE BESYLATE 5 MG TAB PO SCH (07:17)
[2017-09-02] MEDS: MULTIVITAMIN TAB PO SCH (07:17)
[2017-09-02] MEDS: PANTOprazole SOD 40 MG TAB PO SCH (07:18)
[2017-09-02] MEDS: BENAZEPRIL HCL 10 MG TAB PO SCH (07:18)
[2017-09-02] MEDS: CeleBREX 200 MG CAP PO SCH (07:19)
[2017-09-02 07:54] VITALS: BP 160/70; PULSE 55; TEMP 36.7; O2SAT 98
[2017-09-02 08:09] VITALS: O2SAT 98
--- NOTE | 2017-09-02 08:54 | Orthopedic Progress Note ---
Orthopedic Progress Note Date of Service Sep 02, 2017. Subjective Post OP Day: 2 Reports: feeling well, Denies: complaints Objective calves soft nontender, N/V intact, dressing C/D/I, A&O x3, toes mobile Date Time Temp Pulse Resp B/P (MAP) Pulse Ox O2 Delivery O2 Flow Rate FiO2 09/02/17 08:09 98 Room Air 09/02/17 07:54 36.7 55 18 160/70 (100) 98 Room Air 09/02/17 07:25 Room Air 09/02/17 06:27 36.6 51 18 162/59 (93) 96 Room Air 09/01/17 23:52 Room Air 09/01/17 23:00 36.5 51 18 148/62 (90) 97 Room Air 09/01/17 21:06 57 141/58 (85) 09/01/17 16:30 97 Room Air 09/01/17 15:36 36.8 51 18 142/63 (89) 97 Room Air 09/01/17 10:58 36.5 59 16 161/69 (99) 97 Room Air Laboratory Results 24 Hours: Test 09/02/17 05:17 Hematocrit 30.5 % Hemoglobin 10.7 g/dL Assessment & Plan Assessment: POD #2, Left TKA Plan: PT/ OT DVT prph- ASA D/C planning- Home w HH HTN- Appreciate medicine input. Plan for dc to home today Inhouse Planning Pain Management: Celebrex, Ultram, Morphine, PO Tylenol, Oxy IR DVT Prophylaxis: TEDs, SCDs, ASA Discharge Planning Discharge Planning: home with home health Pain Management: PO Tylenol, Oxy IR DVT Prophylaxis: TEDs, ASA Therapy: Physical Therapy
[2017-09-02] MEDS ORDERED: ASPEC81 PO (08:57)
[2017-09-02] MEDS ORDERED: RXC5 PO (08:57)
[2017-09-02] MEDS ORDERED: ACET-24 PO (08:57)
[2017-09-02] MEDS ORDERED: CLB200 PO (08:57)
[2017-09-02 09:42] VITALS: BP 160/70; PULSE 55; TEMP 36.7; O2SAT 98
== END 2017-09-02 14:35 | disposition home health service (06) | DRG 470 ==
LOC: C.ACU 05:05 → C.3E 07:00 → ENRESERV 09:56
PROVIDERS: ADMIT Orthopaedic Surgery Sports Medicine; ATTEND Orthopaedic Surgery Sports Medicine
PROC: 0SRD0J9 Replacement of Left Knee Joint with Synthetic Substitute, Cemented, Open Approach (ICD-10-PCS; principal; 2017-08-31 07:00)
DX: M17.12 Unilateral primary osteoarthritis, left knee (principal); I10 Essential (primary) hypertension; E78.00 Pure hypercholesterolemia, unspecified; K21.9 Gastro-esophageal reflux disease without esophagitis; Z79.899 Other long term (current) drug therapy